=== PATIENT | female | born 2000 | race Caucasian/White ===

== ENCOUNTER 2024-09-19 07:52 | Inpatient (IN) ==
[2024-09-19] MEDS ORDERED: LIDOCAINE 1% LOCAL 20 ML VIAL INFIL PRN (08:48)
[2024-09-19] MEDS ORDERED: OXYTOCIN 30 UNITS/NSS 30 UNITS/500 ML BAG IV PRN ×2 (08:48→12:26)
--- NOTE | 2024-09-19 09:15 | History & Physical Report ---
Date of Service September 19, 2024 Assessment & Plan (1) Encounter for induction of labor: (2) History of GBS (group B streptococcus) UTI, currently : Plan admit, labs. start pit and pcn. arom when appropriate. pain mgmt per pt desires. fhts categ 1. Admission and Anticipated Discharge Date Admission Date: September 19, 2024 History of Present Illness Chief Complaint: planned induction Primary Care Provider: NO PCP 23yo at 40 wks ega presents for elective induction of labor. An medical bill processor is used. Denies ctx, rom. No vb. Aware may have male provider as I cannot guarantee I will be present for delivery or any labor issues. She agrees to proceed, would like to be made aware so she can but hijab on. PNC c/b 1. gbs pos PNL rh pos, ri, gbs pos OBH: x 2 GYNH: nl pap, neg stds Allergies Allergy/AdvReac Type Severity Reaction Status Date / Time No Known Allergies Allergy Verified 09/18/24 11:30 Home Medications Medication Instructions Recorded Confirmed Type doxylamine 10 mg-pyridoxine (vit 1 tab PO BID #60 tabs 02/12/24 09/19/24 Rx B6) 10 mg tablet,delayed release (Diclegis) hydrocortisone acetate 25 mg 25 mg [place] DAILY PRN hemorrhoids #12 04/07/24 09/18/24 Rx rectal suppository (Anusol-HC) ea ondansetron HCl 4 mg tablet 4 mg PO Q6H PRN nausea and 04/07/24 09/19/24 Rx vomiting #20 tabs vitamin no.180-ferrous 1 tab PO DAILY #30 tabs 07/07/24 09/19/24 Rx fumarate 27 mg-folic acid 1 mg tablet ( Plus Vitamin-Mineral) Patient History Medical History (Updated 09/19/24 @ 09:18 by Nicole Bella MD, FACOG) Dystonia At the age of 15 years. Epilepsy Patient reported, falling down and hitting her head as a kid and developed epilepsy, and last episode was 10 years. Inguinal hernia No pertinent past medical history Surgical History No pertinent past surgical history Social History (Updated 02/12/24 @ 13:45 by Ary Gage) Smoking Status: Never smoker Do You Dip or Chew Tobacco: No; Preferred Language: Ukranian marital status: marital status details: marcy bruce (25) [phone] Current Living Situation: Spouse and Family Current Living Situation Comment: lives with spouse and 2 chidren current occupational status: unemployed Feels Safe at Home: Yes Review of Systems as per Subjective / HPI Physical Exam Constitutional: WD/WN, vitals as above Respiratory: normal respiratory effort, lungs clear to auscultation Cardiovascular: Rate/Rhythm: regular rate and regular rhythm Gastrointestinal (Abdomen): soft gravid nt efw 7-8# Musculoskeletal: no edema nontender calves Neurologic: grossly normal Psychiatric: A+Ox3, euthymic affect Genitourinary: Manual OB Exam: + cervical dilation 3 cm, + cervical effacement (75%) and + station -2 OB Exam Monitor Tracing: + external FHT monitor used, + external uterine monitor used (irreg), + category I and + normal FHT variability Results & Data Vital Signs (Past 12 Hours) Vital Signs Pulse BP 09/19/24 08:18 98 H 99/59 L Coding Level of Care Code None Diagnoses Encounter for induction of labor Z34.90 History of GBS (group B streptococcus) UTI, currently O09.899; Z87.440
[2024-09-19] MEDS: OXYTOCIN 30 UNITS/NSS 30 UNITS/500 ML BAG IV PRN (09:37)
[2024-09-19 09:43] LABS: Hematocrit (blood only) 34.1 % (37.0-47.0); Hemoglobin 11.7 g/dl (12.0-16.0); Mean Corpuscular Hemoglobin 31.5 pg (25.0-34.0); Mean Corpuscular Hgb Conc 34.3 g/dL (32.0-36.0); Mean Corpuscular Volume 91.7 fL (80.0-100.0); Platelet Count 192 K/uL (130-400); RDW Coefficient of Variation 13.2 % (11.5-14.5); RDW Standard Deviation 44.3 fL (36.4-46.3); Red Blood Count 3.72 M/uL (4.20-5.40); White Blood Count 9.24 K/ul (4.8-10.8)
[2024-09-19] MEDS: PENICILLIN GK 6 MU in DEXTROSE 5% 250 ML IV ONE (09:45)
--- NOTE | 2024-09-19 11:44 | Labor Progress Brief Note ---
Date of Service September 19, 2024 Subjective pain with ctx. 7cm per nurse and moved to bed and sudden srom Assessment & Plan (1) Encounter for induction of labor: (2) History of GBS (group B streptococcus) UTI, currently : Plan not ready to push but suspect 2nd stage soon. she wants iv pain meds, declines epidural. aware of risk to baby, groggy, sleepiness. she wants to proceed. fhts categ 1. Admission and Anticipated Discharge Date Admission Date: September 19, 2024 Physical Exam Constitutional: WD/WN, vitals as above Genitourinary: Manual OB Exam: + cervical dilation 7 cm, + cervical effacement 100%, + station + 1 and + amniotic fluid (srom) clear OB Exam Monitor Tracing: + external FHT monitor used, + external uterine monitor used (q3), + category I and + normal FHT variability Results & Data Vital Signs (Past 12 Hours) Vital Signs Temp Pulse Resp BP 09/19/24 10:55 73 09/19/24 10:55 106/56 L 09/19/24 08:48 98.2 F 98 H 16 99/59 L 09/19/24 08:18 98.2 F 98 H 16 99/59 L Coding Level of Care Code None Diagnoses Encounter for induction of labor Z34.90 History of GBS (group B streptococcus) UTI, currently O09.899; Z87.440
[2024-09-19] MEDS: BUTORPHANOL TARTRATE 2 MG/ML VIAL IV ONE ×2 (11:45→18:17)
--- NOTE | 2024-09-19 12:11 | Delivery Summary ---
Vaginal Delivery Summary Date of Service September 19, 2024 Vaginal Delivery Summary The patient dilated to complete and pushed to deliver a viable male infant Apgars 7 and 9 via over intact perineum. Shoulder dystocia encountered most likely due to maternal loss of control, lack of concerted pushing and inability to follow instructions. Carlos attempted and suprapubic pressure began and with gentle downward traction and continued maternal expulsive efforts delivery achieved. Nuchal x 1 was noted but delivered through. Mouth and nose bulb suctioned, although infant cried at first, cord doubly clamped and cut and infant to attendant nursery staff for drying and resuscitation. Placenta delivered spontaneously and intact, three-vessel cord. Hemostasis achieved with dilute pitocin and uterine massage. Cervix and sulci intact. EBL 50 cc. Mother and baby stable in recovery. Events of delivery reviewed with patient and inspector screen printing offered. [facility] [place] Charge Delivery Type Details:
[2024-09-19] MEDS ORDERED: PENICILLIN GK 3 MU in DEXTROSE 5% 100 ML IV PRN (12:14)
[2024-09-19] MEDS ORDERED: HYDROCORTISONE ACETATE 25 MG SUPP PR PRN (12:26)
[2024-09-19] MEDS ORDERED: BENZOCAINE 20% SPRY 85 APPLN/85 GM CAN EXT PRN (12:26)
[2024-09-19] MEDS ORDERED: oxyCODONE/ACETAMINOPHEN 5mg/325mg TAB PO PRN (12:26)
[2024-09-19] MEDS: IBUPROFEN 600 MG TAB PO PRN (13:37)
[2024-09-19] MEDS: DIPHTHER/TETAN/PERTUS Vaccine (Tdap, Adol/Adult) 0.5mL IM ONE (13:38)
[2024-09-19] MEDS: ACETAMINOPHEN 325 MG TAB PO PRN (15:17)
[2024-09-19] MEDS: BUTORPHANOL TARTRATE 2 MG/ML VIAL ONE (16:06)
[2024-09-19] MEDS: DOCUSATE SODIUM 100 MG CAP PO SCH (22:01)
[2024-09-20 05:35] VITALS: RESP 16; TEMP 97.5
--- NOTE | 2024-09-20 07:22 | Obstetrical Progress Note ---
Date of Service September 20, 2024 Assessment & Plan (1) care and examination: Plan stable, routine care. desires dc home, instructions reviewed. f/u 6wk pp. breast/rhpos/ri Subjective Ambulation: ambulating normally Voiding: no voiding problems Diet Tolerance:: regular diet Lochia:: Small Feeding Type:: breast feeding denies concerns,wants to go home Constitutional: + as per Subjective / HPI Physical Exam Constitutional WD/WN, vitals as above Respiratory normal respiratory effort, lungs clear to auscultation Cardiovascular Rate/Rhythm: regular rate and regular rhythm Gastrointestinal (Abdomen) Inspection/Auscultation: abdomen normal to inspection Percussion/Palpation: abdomen soft Fundus firm 2cm down Musculoskeletal nt calves no edema Neurologic grossly normal Psychiatric A+Ox3, euthymic affect Results & Data Vital Signs (Past 12 Hours) Vital Signs Temp Pulse Resp BP O2 Del Method 09/20/24 04:15 97.5 F L 59 L 16 97/60 L Room Air 09/20/24 00:30 97.9 F 68 12 92/53 L Room Air 09/19/24 20:10 98.1 F 69 16 95/53 L Room Air
[2024-09-20] MEDS: PRENATAL VITAMIN 1 TAB PO SCH (08:48)
[2024-09-20 11:27] VITALS: BP 98/61; O2SAT 97
[2024-09-20 11:58] VITALS: PULSE 59
[2024-09-20] MEDS ORDERED: bisacodyL 5 MG TABEC PO SCH (20:00)
== END 2024-09-20 13:45 | disposition home or self-care (01) | DRG 807 ==
LOC: 4S1 07:52 → 4E2 15:00